=== PATIENT | male | born 1970 | race Caucasian/White ===

== ENCOUNTER → 2017-02-02 | Outpatient (CLI) | payer BC ==
[~2017-02-02] MED LIST: ASPI81TA28 PO; ATOR-26 PO; CLOP1TAB15 PO; GLIM1TAB2 PO; LEVO75TA PO; LISI-526 PO; METF1000 PO; METO-217 PO
[2017-02-02 17:55] LABS: HEMATOCRIT 43.1 % (42-52); MEAN CELL VOLUME 86.4 fL (80-100); MEAN CORPUSCULAR HEMOGLOBIN 29.3 pg (25-34); MEAN CORPUSCULAR HGB CONC 33.9 g/dl (32-36); MEAN PLATELET VOLUME 10.7 fL (7.4-10.4); PLATELET COUNT 227 K/uL (130-400); RED BLOOD COUNT 4.99 M/uL (4.7-6.1); WHITE BLOOD COUNT 7.17 K/uL (4.8-10.8)
[2017-02-02 18:21] LABS: ALB/GLOB RATIO 1.1 (0.9-2); ALT/SGPT 48 U/L (12-78); BLOOD UREA NITROGEN 31 mg/dl (7-18); BUN/CREATININE RATIO 17.9 (10-20); CALCIUM 9.7 mg/dl (8.5-10.1); CARBON DIOXIDE 28 mmol/L (21-32); CHLORIDE 108 mmol/L (98-107); CHOLESTEROL 185 mg/dl (0-200); GLUCOSE 98 mg/dl (70-99); POTASSIUM 5.1 mmol/L (3.5-5.1); SODIUM 141 mmol/L (136-145); TRIGLYCERIDES 173 mg/dl (0-150); VERY LOW DENSITY LIPOPROT CALC 35 mg/dl
[2017-02-02 18:27] LABS: RATIO 33.3 mcg/mg (0-30.0)
[2017-02-02 18:31] LABS: ALKALINE PHOSPHATASE 86 U/L (45-117); AST/SGOT 30 U/L (15-37); CHOLESTEROL/HDL RATIO 4.3; HDL CHOLESTEROL 43 mg/dl; LDL CHOLESTEROL CALCULATED 107 mg/dl
[2017-02-03 06:33] LABS: ESTIMATED AVERAGE GLUCOSE 151 mg/dl; HA1C FLAG Normal (Normal)
== END | disposition home or self-care (01) ==
LOC: C.LABBFT 09:18
PROVIDERS: ATTEND Internal Medicine
DX: I10 Essential (primary) hypertension (principal); E11.29 Type 2 diabetes mellitus with other diabetic kidney complication; E03.9 Hypothyroidism, unspecified

== ENCOUNTER → 2017-02-05 | Outpatient (CLI) | payer BC ==
--- NOTE | 2017-02-05 08:51 | DIAGNOSTIC IMAGING REPORT ---
DUPLEX RENAL ARTERY CLINICAL HISTORY: 46 years-old Male presenting with hypertension, concern for renal artery stenosis. TECHNIQUE: Real-time grayscale and color and spectral Doppler ultrasound imaging of the kidneys was performed. COMPARISON: None. FINDINGS: Right kidney: Intrarenal resistive indices range from 0.66 to 0.66. Normal intrarenal arterial waveforms. Renal artery patent with peak systolic velocity 108 cm/s. Renal vein patent. Normal echogenicity. Kidney measures 11 cm. No hydronephrosis. No convincing evidence of calculus or mass. Left kidney: Intrarenal resistive indices range from 0.65 to 0.69. Normal intrarenal arterial waveforms. Renal artery patent with peak systolic velocity 95 cm/s. Renal vein patent. Normal echogenicity. Kidney measures 11.2 cm. No hydronephrosis. No convincing evidence of calculus or mass. Abdominal aorta: Patent. Peak systolic velocity 81 cm/s. Other: None. Reference ranges: Main renal artery peak systolic velocity less than 180 cm/s and ratio of renal artery PSV to aortic PSV less than 2.5 equates to less than 60% stenosis. IMPRESSION: No evidence of renal artery stenosis. Electronically signed by: Yordy Ambriz M.D. 02/05/2017 8:50 AM Dictated Date/Time: 02/05/2017 8:47 AM
== END | disposition home or self-care (01) ==
LOC: C.ULTR 07:57
PROVIDERS: ATTEND Internal Medicine
DX: I10 Essential (primary) hypertension (principal)

== ENCOUNTER → 2017-03-27 | Outpatient (CLI) | payer BC ==
[2017-03-27 16:36] LABS: BLOOD UREA NITROGEN 19 mg/dl (7-18); BUN/CREATININE RATIO 14.3 (10-20); CALCIUM 8.6 mg/dl (8.5-10.1); CARBON DIOXIDE 26 mmol/L (21-32); CHLORIDE 106 mmol/L (98-107); GLUCOSE 193 mg/dl (70-99); POTASSIUM 4.2 mmol/L (3.5-5.1); SODIUM 138 mmol/L (136-145)
== END | disposition home or self-care (01) ==
LOC: C.LABBFT 13:46
PROVIDERS: ATTEND Internal Medicine
DX: I10 Essential (primary) hypertension (principal); E03.9 Hypothyroidism, unspecified

== ENCOUNTER → 2017-06-11 | Outpatient (CLI) | payer BC ==
[2017-06-11 17:35] LABS: ALT/SGPT 39 U/L (12-78); AST/SGOT 28 U/L (15-37); BLOOD UREA NITROGEN 26 mg/dl (7-18); BUN/CREATININE RATIO 18.2 (10-20); CALCIUM 8.9 mg/dl (8.5-10.1); CARBON DIOXIDE 27 mmol/L (21-32); CHLORIDE 108 mmol/L (98-107); CHOLESTEROL 150 mg/dl (0-200); CREATININE 1.42 mg/dl (0.60-1.40); GLUCOSE 137 mg/dl (70-99); POTASSIUM 4.8 mmol/L (3.5-5.1); SODIUM 140 mmol/L (136-145); TRIGLYCERIDES 114 mg/dl (0-150); VERY LOW DENSITY LIPOPROT CALC 23 mg/dl
[2017-06-11 17:45] LABS: ALB/GLOB RATIO 0.9 (0.9-2); ALKALINE PHOSPHATASE 95 U/L (45-117); CHOLESTEROL/HDL RATIO 3.7; HDL CHOLESTEROL 41 mg/dl; LDL CHOLESTEROL CALCULATED 86 mg/dl
[2017-06-12 06:37] LABS: ESTIMATED AVERAGE GLUCOSE 171 mg/dl; HA1C FLAG Normal (Normal)
== END | disposition home or self-care (01) ==
LOC: C.LABBFT 13:52
PROVIDERS: ATTEND Internal Medicine
DX: E11.29 Type 2 diabetes mellitus with other diabetic kidney complication (principal)

== ENCOUNTER → 2017-07-31 | Outpatient (CLI) | payer BC ==
[2017-07-31 12:56] LABS: BLOOD UREA NITROGEN 45 mg/dl (7-18); CALCIUM 8.9 mg/dl (8.5-10.1); CARBON DIOXIDE 24 mmol/L (21-32); CREATININE 1.86 mg/dl (0.60-1.40); GLUCOSE 141 mg/dl (70-99); POTASSIUM 5.1 mmol/L (3.5-5.1); SODIUM 135 mmol/L (136-145)
== END | disposition home or self-care (01) ==
LOC: C.LABBFT 08:35
PROVIDERS: ATTEND Physician Assistant Medical
DX: I10 Essential (primary) hypertension (principal)

== ENCOUNTER → 2017-10-28 | Outpatient (CLI) | payer BC ==
[2017-10-28 18:10] LABS: BLOOD UREA NITROGEN 28 mg/dl (7-18); CREATININE 1.68 mg/dl (0.60-1.40); GLUCOSE 251 mg/dl (70-99)
[2017-10-28 18:11] LABS: ALBUMIN 3.9 gm/dl (3.4-5.0); ALT/SGPT 43 U/L (12-78); CALCIUM 9.1 mg/dl (8.5-10.1); CARBON DIOXIDE 25 mmol/L (21-32); POTASSIUM 5.7 mmol/L (3.5-5.1); SODIUM 138 mmol/L (136-145)
[2017-10-28 18:13] LABS: ALKALINE PHOSPHATASE 101 U/L (45-117); AST/SGOT 34 U/L (15-37)
[2017-10-29 06:38] LABS: HEMOGLOBIN A1C 8.2 % (4.5-5.6)
== END | disposition home or self-care (01) ==
LOC: C.LABBFT 12:29
PROVIDERS: ATTEND Physician Assistant Medical
DX: E11.65 Type 2 diabetes mellitus with hyperglycemia (principal)

== ENCOUNTER → 2017-10-30 | Outpatient (CLI) | payer BC ==
[2017-10-30 16:52] LABS: BLOOD UREA NITROGEN 24 mg/dl (7-18); CALCIUM 8.6 mg/dl (8.5-10.1); CARBON DIOXIDE 26 mmol/L (21-32); CREATININE 1.51 mg/dl (0.60-1.40); GLUCOSE 196 mg/dl (70-99); POTASSIUM 4.9 mmol/L (3.5-5.1); SODIUM 137 mmol/L (136-145)
== END | disposition home or self-care (01) ==
LOC: C.LABBFT 12:59
PROVIDERS: ATTEND Internal Medicine
DX: E87.5 Hyperkalemia (principal)

== ENCOUNTER 2022-07-11 16:29 | Inpatient (IN) ==
--- NOTE | 2022-07-11 17:58 | CT Scan Report ---
CT SCAN OF THE ABDOMEN AND PELVIS WITHOUT IV CONTRAST CLINICAL HISTORY: Acute renal insufficiency COMPARISON STUDY: Renal ultrasound dated 07/11/2022. TECHNIQUE: CT scan of the abdomen and pelvis is performed from the lung bases to the proximal femora. Images are reviewed in the axial, sagittal, and coronal planes. IV contrast was not administered for this examination. A dose lowering technique was utilized adhering to the principles of ALARA. CT DOSE: 752.90 mGycm FINDINGS: Lung bases: The heart is normal in size and without pericardial effusion. The coronary arteries are c alcified. There are at least 3 additional nonobstructing left renal calculi which measure up to 4 mm. There are least 2 punctate nonobstructing right renal calculi. There is no right ureteral stone or r ight-sided hydronephrosis. The lung bases are clear noting bibasilar scarring/atelectasis. Liver: The unenhanced liver is normal in size, contour, and attenuation. There is no intrahepatic maty iary ductal dilatation. Gallbladder: Unremarkable. Spleen: Normal in size and attenuation. Pancreas: Unremarkable. Adrenal glands: Unremarkable. Kidneys: The unenhanced kidneys are normal in size. There is a 2.0 cm obstructing calculus in the mid left ureter at the level of L4. This is best seen on axial image #230. This causes moderate left hyd roureteronephrosis. There are no renal calculi identified. There is no evidence of contour deforming renal mass lesion. Abdominal vasculature: The abdominal aorta is normal in course and caliber noting moderate atheroscle rotic calcification. Bowel: There is no bowel obstruction. The appendix is well-visualized and normal. Peritoneum: There is no intraperitoneal free air or abdominal ascites. Lymphadenopathy: None. Pelvic viscera: The prostate gland is diminutive and heterogeneous. The bladder wall appears mildly t hickened and trabeculated suggesting chronic outlet obstruction. There are small bilateral fat-contai bret inguinal hernias. Skeletal structures: No lytic or blastic lesions are seen. There is chronic fracture deformity noted in both pubic rings and the left proximal femur. Postoperative changes noted in the left proximal fem ur. Bolts transfix both sacroiliac joints. IMPRESSION: 1. There is a 2 cm obstructing calculus in mid left ureter. This causes moderate left hydroureteronep hrosis. 2. Additional bilateral nonobstructing renal calculi as above. 3. Coronary artery calcifications. 4. Additional findings as above. ACT 112: Negative or not required by law. Electronically signed by: Brad Peguero M.D. 07/11/2022 5:56 PM
[2022-07-11] MEDS ORDERED: SODIUM CHLORIDE 0.9% 1000ML 1,000 ML IV ONE (18:07)
--- NOTE | 2022-07-11 18:08 | Emergency Department Note ---
Impression & Plan Acute kidney injury superimposed on CKD, Hydronephrosis due to obstruction of ureter, Calculus of proximal left ureter ED Provider Note Name: MANOHAR LAMB Age: 52 Sex: M Arrives Via: Walk-In Informant: Patient, ED Provider: Wilman Khalil MD Chief Complaint: Flank pain Impression: As per impressions above Medical Decision Makin-year-old male with a known history of CAD, CKD, diabetes amongst others arrives for evaluation of 2 months of vaguely worsening left flank pain and several days of rapidly worsening fatigue exhaustion and generalized illness. He had already been seen in the outpatient setting where labs revealed acute worsening of his chronic renal disease as well as hydronephrosis of the left kidney secondary to an obstructing proximal ureteral stone. A CT was obtained without contrast here which confirms a almost 2 cm proximal left ureteral stone causing left hydronephrosis. His renal function has bumped significantly though at this point he is not requiring dialysis. Electrolytes are stable. He was given 1 L normal saline while evaluated in the ER. When reviewing the chart I would suspect that the acute renal injury secondary to this obstructing stone which is probably been ongoing for some time now possibly worsened by recent medication changes. Case was discussed with on-call urology who agrees with plan for hospitalization fluid hydration and likely OR in the morning for stenting. I discussed this with the patient and his they are on board with this. I will note the patient is soft nontender abdomen he is not septic appearing he is awake alert oriented. There is no evidence of infection at this time and urinalysis is consistent with stone but not infection. Prior Medical Record and Triage/Nursing Notes reviewed by Me Additional history obtained from outpatient PCP records revealing patient's recent history and work-up. Differentials:Acute renal failure, renal colic, medication induced, stone induced, pyelonephritis, UTI, diverticulitis, ischemia amongst multiple other pathologies considered. Vital Signs: reviewed and remarkable for no significant abnormalities Interventions: 1 L normal saline IV bolus Labs:Reviewed and remarkable for acute worsening of creatinine consistent with acute on chronic renal failure. Unremarkable WBC. Imaging:CT of the abdomen pelvis without contrast as per radiology proximal 2 cm left ureteral stone causing moderate hydro Consults:Dr. Nelson of [facility] urology agrees with IV hydration, hospitalization likely OR in the morning. I discussed case with Dr. Dyer [facility] Hospitalist who will admit the patient. Plan: Disposition:Hospitalization. Condition: Good History of Present Illness:52-year-old gentleman arrives for evaluation of worsening kidney function. Patient notes 2 months of some vaguely not feeling well with left flank pain. He had an ultrasound a few months ago which showed a large somewhat obstructing proximal ureteral stone. Notes some periodic discomfort but no significant pain. Notes he gets nauseous anytime he eats. The last few weeks worsening symptoms. He had kidney function testing done the last few days noted worsening renal function along with an ultrasound which showed a 1 and half centimeter proximal left ureteral stone and moderate hydro-. He was sent to the hospital for admission and management. Patient had no medications prior to arrival. Notes he feels worse when he eats. States has been more tired recently. The last few weeks he did have increase in both of his blood pressure medications. States he has not had as much appetite or thirst recently. He is still urinating. No urinary burning, frequency, fevers, chills, chest pain, shortness of breath, abdominal pain, leg swelling, rashes or other concerning signs or symptoms. No history of renal failure. He does have a history of diabetes and watches his blood sugars closely. Usually they are in the low 100s but did go up into the 200s the last few days. Allergies:No known drug allergies Vitals:Blood Pressure: 128/81, Pulse 95, RR 18, T 36.2C, O2 99% on RA Physical Exam: GENERAL: Patient is tired appearing and in minimal distress. EYES: No scleral icterus, unremarkable pupils. RESPIRATORY: No dyspnea. Clear to auscultation and equal bilaterally. No wheeze, no rhonchi. CARDIOVASCULAR: Regular rate and rhythm.No murmurs, rubs, gallops appreciated. GASTROINTESTINAL: Abdomen soft, non-tender, no peritonitis.Bowel sounds positive.No masses appreciated. BACK: No midline tenderness, no CVA tenderness EXTREMITIES: Normal motion all extremities, no cyanosis, no edema. NEUROLOGIC: Alert and oriented, no focal weakness SKIN: No rash, no jaundice, no diaphoresis. PSYCH: Appropriate GCS: 15 ED Course: Times/Reassessments: Patient stable he feels well with IV hydration and is agreeable to hospitalization would likely OR in the morning aware n.p.o. after midnight. Wilman Khalil MD Past Med/Surg History Medical History CAD (coronary artery disease) Chronic kidney disease, stage III (moderate) DM retinopathy Hyperlipidemia Hypertension Hypothyroidism Proteinuria Stage 3b chronic kidney disease Type 2 diabetes mellitus Vitamin D deficiency Surgical History History of cardiac catheterization S/P coronary artery stent placement Family History Father Myocardial infarction Heart disease Hypertension Family/Other Diabetes Mother Hypertension Other Breast cancer Prostate cancer Denies family history of Colorectal cancer Social History Smoking Status: Never smoker Second Hand Exposure: No; Hx Alcohol Use: No Hx Substance Use: No Preferred Language: Panamanian Communication Ability: Effective Hearing Ability: Normal 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 Beliefs That Will Affect Care: None marital status: Current Living Situation: Spouse current occupational status: employed Other Information That Helps Us Care for You: No Feels Safe at Home: Yes Safety Concerns: Feels Safe At This Time caffeine: No Dental Care, Regularly: No Seatbelt Use: always Sunscreen Use: Yes Assistive Devices: Glasses Allergies Allergies Allergy/AdvReac Type Severity Reaction Status Date / Time No Known Allergies Allergy Verified 07/11/22 19:11 Home Meds Home Medications Medication Instructions Recorded Confirmed aspirin 81 mg tablet,delayed 81 mg PO DAILY 10/10/18 07/11/22 release amlodipine 10 mg tablet 10 mg PO QAM 07/11/22 07/11/22 dulaglutide 3 mg/0.5 mL 3 mg subcut WK 07/11/22 07/11/22 subcutaneous pen injector Previous Rx's Medication Instructions Recorded levothyroxine 75 mcg tablet 75 mcg PO DAILY #90 tabs 08/06/21 metoprolol succinate 100 mg 100 mg PO DAILY #90 tabs 08/06/21 tablet,extended release 24 hr clopidogrel 75 mg tablet 75 mg PO DAILY #90 tabs 08/20/21 rosuvastatin 40 mg tablet 40 mg PO DAILY #90 tabs 09/19/21 glimepiride 2 mg tablet 2 mg PO .COMPLEX #270 tabs 02/07/22 dapagliflozin 10 mg tablet 10 mg PO QAM #90 tabs 07/03/22 (Merged With [facility]) flash glucose scanning reader #1 ea 07/03/22 (FreeStyle Jamil 14 Day [place]) flash glucose sensor (FreeStyle #1 ea 07/03/22 Jamil 14 Day Sensor kit) lisinopril 20 mg tablet 20 mg PO DAILY #90 tabs 07/03/22 metformin 1,000 mg tablet 1,000 mg PO BID 90 days #180 tabs 07/03/22 Results & Data (ED) Vital Signs Vital Signs - 24 hr 07/11/22 16:30 Temperature 36.2 C L Temperature Source Temporal Artery Scan Pulse Rate 95 H Respiratory Rate 18 Blood Pressure 128/81 Blood Pressure Mean 96 Blood Pressure Position Lying Pulse Oximetry 99 Oxygen Delivery Method Room Air Sepsis Recent Fever Within 48 Hours No Sepsis New/Unexplained Change in Mental Status No Sepsis Action Taken by Nursing No Action Required Laboratory Data 07/11/22 17:38 07/11/22 17:38 Lab Results 07/11/22 07/11/22 07/11/22 Range/Units 17:38 17:38 18:31 WBC 7.00 (4.8-10.8) K/ul RBC 5.03 (4.63-6.08) M/uL Hgb 13.6 L (14.0-18.0) g/dl Hct 41.1 (40.1-51.0) % MCV 81.7 (80.0-100.0) fL MCH 27.0 (25.0-34.0) pg MCHC 33.1 (32.0-36.0) g/dL RDW Std Deviation 39.2 (36.4-46.3) fL RDW Coeff of Ross 13.2 (11.5-14.5) % Plt Count 274 (130-400) K/uL MPV 10.5 (9.4-12.4) fL Immature Gran % (Auto) 0.4 % Neut % (Auto) 56.7 % Lymph % (Auto) 32.4 % Hutchinson % (Auto) 9.0 % Eos % (Auto) 0.9 % Baso % (Auto) 0.6 % Neut # (Auto) 3.97 (1.4-6.5) K/uL Lymph # (Auto) 2.27 (1.2-3.4) K/uL Hutchinson # (Auto) 0.63 (0.24-0.82) K/uL Eos # (Auto) 0.06 (0-0.50) K/uL Baso # (Auto) 0.04 (0-0.2) K/uL Immature Gran # (Auto) 0.03 H (0.00-0.02) K/uL Sodium 136 (136-145) mmol/L Potassium 4.5 (3.5-5.1) mmol/L Chloride 106 (98-107) mmol/L Carbon Dioxide 21 (21-32) mmol/L Anion Gap 9 (3-11) BUN 45 H (6-23) mg/dl Creatinine 3.49 H (0.6-1.4) mg/dl Est Cr Clr Drug Dosing 26.2 ml/min Est GFR ( Amer) 22.2 ml/min Est GFR (Non-Af Amer) 19.1 ml/min BUN/Creatinine Ratio 12.9 (10-20) Glucose 103 H (70-99(Fasting)) mg/dl Calcium 9.6 (8.5-10.1) mg/dl Total Bilirubin 0.4 (0.2-1.0) mg/dl AST 21 (13-39) U/L ALT 27 (7-52) U/L Alkaline Phosphatase 78 (34-104) U/L Total Protein 9.0 H (6.0-8.3) gm/dl Albumin 4.8 (3.4-5.0) gm/dl Globulin 4.2 H (2.5-4.0) gm/dl Albumin/Globulin Ratio 1.1 (0.9-2) SARS-CoV-2, RNA, NAAT NEGATIVE (NEGATIVE) Administered Medications Acetaminophen (Acetaminophen 325 Mg Tab) 650 mg PO Q4H PRN PRN Reason: Pain or Fever Stop: 08/10/22 22:08 Last Admin: 07/12/22 11:59 Dose: 650 mg Documented By: LENORA Amlodipine Besylate (Amlodipine Besylate 5 Mg Tab) 5 mg PO DAILY [facility] Stop: 08/11/22 08:59 Last Admin: 07/12/22 11:01 Dose: 5 mg Documented By: LENORA Lactated Ringer's (Lr) 1,000 mls @ 150 mls/hr IV .Q6H40M RACHELLE Stop: 08/10/22 22:08 Last Infusion: 07/12/22 10:57 Dose: 150 mls/hr Documented By: Infusion: 07/12/22 08:45 Dose: 0 mls/hr Documented By: Admin: 07/12/22 07:22 Dose: 150 mls/hr Documented By: Infusion: 07/12/22 07:22 Dose: 150 mls/hr Documented By: Admin: 07/12/22 00:46 Dose: 150 mls/hr Documented By: Infusion: 07/12/22 00:46 Dose: 150 mls/hr Documented By: Admin: 07/11/22 23:10 Dose: 150 mls/hr Documented By: CLAUDIO Insulin Aspart (Insulin Aspart Per Unit) 0 units SC ACHS RACHELLE Stop: 08/10/22 22:08 Last Admin: 07/12/22 12:47 Dose: Not Given Documented By: Admin: 07/12/22 08:19 Dose: Not Given Documented By: Admin: 07/12/22 01:10 Dose: 3 units Documented By: RONALD Co-signed By: EDUARDA Insulin Glargine (Lantus Per Unit Charge) 14 units SQ BID RACHELLE Stop: 08/10/22 22:08 Last Admin: 07/12/22 11:03 Dose: 14 units Documented By: LENORA Co-signed By: JOSEY Admin: 07/12/22 00:47 Dose: 14 units Documented By: RONALD Co-signed By: EDUARDA Levothyroxine Sodium (Levothyroxine Sodium 75 Mcg Tablet) 75 mcg PO DAILYBB RACHELLE Stop: 08/11/22 06:29 Last Admin: 07/12/22 05:35 Dose: 75 mcg Documented By: RONALD Metoprolol Succinate (Metoprolol Succ 50mg Ext Rel Tab) 100 mg PO DAILY RACHELLE Stop: 08/11/22 08:59 Last Admin: 07/12/22 11:01 Dose: 100 mg Documented By: LENORA Rosuvastatin Calcium (Rosuvastatin Calcium 20 Mg Tab) 40 mg PO DAILY RACHELLE Stop: 08/11/22 08:59 Last Admin: 07/12/22 11:01 Dose: 40 mg Documented By: LENORA Discontinued Medications Sodium Chloride (Nss 1000ml) 1,000 mls @ 999 mls/hr IV .Q1H1M ONE Stop: 07/11/22 19:07 Last Infusion: 07/11/22 21:11 Dose: 0 mls/hr Documented By: psychological aide: 07/11/22 18:25 Dose: 999 mls/hr Documented By: MARCIA Cefazolin Sodium (Ancef 2000mg) 2,000 mg in 15 mls @ 3.75 mls/min IV ONCE ONE; Protocol Stop: 07/12/22 10:05 Last Admin: 07/12/22 09:40 Dose: 3.75 mls/min Documented By: MAUREEN Imaging Data Radiologist's Impression: Abdomen/Pelvis CT 07/11/22 16:32 CT SCAN OF THE ABDOMEN AND PELVIS WITHOUT IV CONTRAST CLINICAL HISTORY: Acute renal insufficiency COMPARISON STUDY: Renal ultrasound dated 07/11/2022. TECHNIQUE: CT scan of the abdomen and pelvis is performed from the lung bases to the proximal femora. Images are reviewed in the axial, sagittal, and coronal planes. IV contrast was not administered for this examination. A dose lowering technique was utilized adhering to the principles of ALARA. CT DOSE: 752.90 mGycm FINDINGS: Lung bases: The heart is normal in size and without pericardial effusion. The coronary arteries are calcified. There are at least 3 additional nonobstructing left renal calculi which measure up to 4 mm. There are least 2 punctate nonobstructing right renal calculi. There is no right ureteral stone or right- sided hydronephrosis. The lung bases are clear noting bibasilar scarring/atelectasis. Liver: The unenhanced liver is normal in size, contour, and attenuation. There is no intrahepatic biliary ductal dilatation. Gallbladder: Unremarkable. Spleen: Normal in size and attenuation. Pancreas: Unremarkable. Adrenal glands: Unremarkable. Kidneys: The unenhanced kidneys are normal in size. There is a 2.0 cm obstructing calculus in the mid left ureter at the level of L4. This is best seen on axial image #230. This causes moderate left hydroureteronephrosis. There are no renal calculi identified. There is no evidence of contour deforming renal mass lesion. Abdominal vasculature: The abdominal aorta is normal in course and caliber noting moderate atherosclerotic calcification. Bowel: There is no bowel obstruction. The appendix is well-visualized and normal. Peritoneum: There is no intraperitoneal free air or abdominal ascites. Lymphadenopathy: None. Pelvic viscera: The prostate gland is diminutive and heterogeneous. The bladder wall appears mildly thickened and trabeculated suggesting chronic outlet obstruction. There are small bilateral fat-containing inguinal hernias. Skeletal structures: No lytic or blastic lesions are seen. There is chronic fracture deformity noted in both pubic rings and the left proximal femur. Postoperative changes noted in the left proximal femur. Bolts transfix both sacroiliac joints. IMPRESSION: 1. There is a 2 cm obstructing calculus in mid left ureter. This causes moderate left hydroureteronephrosis. 2. Additional bilateral nonobstructing renal calculi as above. 3. Coronary artery calcifications. 4. Additional findings as above. ACT 112: Negative or not required by law. Electronically signed by: Brad Peguero M.D. 07/11/2022 5:56 PM Discharge Plan Visit Data Chief Complaint: Referred by Doctor Stated Complaint: REF BY DOC, ULTRASOUND TESTING ON KIDNEY ED Provider: Wilman Khalil Discharge Problem: Acute kidney injury superimposed on CKD, Hydronephrosis due to obstruction of ureter, Calculus of proximal left ureter Patient Disposition: Admitted As Inpatient Discharge Instructions Interventions: ED Discharge Assessment Last Done: 07/11/22 23:07
[2022-07-11 18:11] LABS: Basophils # (auto) 0.04 K/uL (0-0.2); Basophils % (auto) 0.6 %; Eosinophils # (auto) 0.06 K/uL (0-0.50); Eosinophils % (auto) 0.9 %; Hematocrit (blood only) 41.1 % (40.1-51.0); Hemoglobin 13.6 g/dl (14.0-18.0); Immature Granulocytes # (auto) 0.03 K/uL (0.00-0.02); Immature Granulocytes % (auto) 0.4 %; Lymphocytes # (auto) 2.27 K/uL (1.2-3.4); Lymphocytes % (auto) 32.4 %; Mean Corpuscular Hgb Conc 33.1 g/dL (32.0-36.0); Mean Corpuscular Volume 81.7 fL (80.0-100.0); Mean Platelet Volume 10.5 fL (9.4-12.4); Monocytes # (auto) 0.63 K/uL (0.24-0.82); Neutrophils # (auto) 3.97 K/uL (1.4-6.5); Neutrophils % (auto) 56.7 %; Platelet Count 274 K/uL (130-400); RDW Coefficient of Variation 13.2 % (11.5-14.5); RDW Standard Deviation 39.2 fL (36.4-46.3); Red Blood Count 5.03 M/uL (4.63-6.08)
[2022-07-11 18:15] LABS: Albumin Globulin Ratio 1.1 (0.9-2); Albumin Level 4.8 gm/dl (3.4-5.0); BUN Creatinine Ratio 12.9 (10-20); Bilirubin,Total 0.4 mg/dl (0.2-1.0); Calcium 9.6 mg/dl (8.5-10.1); Creatinine Clr Calc Pharmacy 26.2 ml/min; Est GFR (African American) 22.2 ml/min; Est GFR (Non-African American) 19.1 ml/min; Globulin 4.2 gm/dl (2.5-4.0); Potassium 4.5 mmol/L (3.5-5.1)
--- NOTE | 2022-07-11 18:52 | History & Physical Report ---
Date of Service July 11, 2022 Assessment & Plan (1) Acute kidney injury superimposed on CKD: Plan: - 2/2 left obstructing stones/hydro - Urology consulted, appreciate their recommendations. - LR 125 cc/hr. - Hold Lisinopril, Farxiga. - Repeat BMP in AM. (2) Hydronephrosis due to obstruction of ureter: Plan: - Urology consulted, management of VERONICA as above. (3) Diabetes mellitus type 2, uncontrolled, with complications: Plan: - Hold oral agents (glimepiride, Trulicity metformin) - Weight based basal/bolus whit admitted - A1c 9.8% 07/03 - DM diet (4) Stage 3b chronic kidney disease: Plan: - Baseline 1.8 to 2.1, management of VERONICA as above. (5) Anemia: Plan: - Likey secondary to CKD. (6) CAD (coronary artery disease): Plan: - s/p PCI with LINDA 09/17 and 10/18 to LAD and LCx/OM, carotid artery stenosis - Continue aspirin and Plavix daily - Continue diabetes, cholesterol, blood pressure management. (7) Hypertension: Plan: - Lisinopril on hold for VERONICA. - Continue metoprolol. (8) Hyperlipidemia: Plan: - Continue rosuvastatin. (9) Hypothyroidism: Plan: - Continue levothyroxine. Plan - Admit to medicine with telemetry. - SCDs, Lovenox for VTE ppx. - Full Code. History of Present Illness Chief Complaint: worsening renal function Primary Care Provider: Dagoberto Bazan DO Efren Mello is a 52-year-old male with past medical history significant for uncontrolled diabetes, hypertension, hyperlipidemia, hypothyroidism, CKD 3, CAD who is presenting today with worsening renal function. Follows with nephrology and his PCP closely as an outpatient, and recently had his lisinopril increased from 10 mg to 20 mg and Farxiga increased from 5 mg to 10 mg. His metformin was also increased to the maximum daily dose. His baseline creatinine is 1.8, however after the medication changes he got up to 2.4, now 3.2 Baseline GFR of around 40, now 20. He has a history of nonobstructing renal follow-ups, therefore a renal U/S was ordered which shows moderate left hydronephrosis due to several proximal mid left ureteral calculi that measure up to 1.6 cm, bilateral nephrolithiasis. On presentation, patients VS are within normal limits, he is hemodynamically stable. Labs significant for creatinine 3.49, GFR 19.1. He is without any electrolyte abnormalities, has a chronic anemia which is at baseline. Renal ultrasound obtained today, as above. We will consult for obstructing renal stones. Allergies Allergy/AdvReac Type Severity Reaction Status Date / Time No Known Allergies Allergy Verified 07/11/22 19:11 Home Medications Medication Instructions Recorded Confirmed Type aspirin 81 mg tablet,delayed 81 mg PO DAILY 10/10/18 07/11/22 History release levothyroxine 75 mcg tablet 75 mcg PO DAILY #90 tabs 08/06/21 07/11/22 Rx metoprolol succinate 100 mg 100 mg PO DAILY #90 tabs 08/06/21 07/11/22 Rx tablet,extended release 24 hr clopidogrel 75 mg tablet 75 mg PO DAILY #90 tabs 08/20/21 07/11/22 Rx rosuvastatin 40 mg tablet 40 mg PO DAILY #90 tabs 09/19/21 07/11/22 Rx glimepiride 2 mg tablet 2 mg PO .COMPLEX #270 tabs 02/07/22 07/11/22 Rx dapagliflozin 10 mg tablet 10 mg PO QAM #90 tabs 07/03/22 07/11/22 Rx (Farxiga) flash glucose scanning reader #1 ea 07/03/22 07/03/22 Rx (FreeStyle Jamil 14 Day [place]) flash glucose sensor (FreeStyle #1 ea 07/03/22 07/03/22 Rx Jamil 14 Day Sensor kit) lisinopril 20 mg tablet 20 mg PO DAILY #90 tabs 07/03/22 07/11/22 Rx metformin 1,000 mg tablet 1,000 mg PO BID 90 days #180 tabs 07/03/22 07/11/22 Rx amlodipine 10 mg tablet 10 mg PO QAM 07/11/22 07/11/22 History dulaglutide 3 mg/0.5 mL 3 mg subcut WK 07/11/22 07/11/22 History subcutaneous pen injector Past Med/Surg History Medical History CAD (coronary artery disease) Chronic kidney disease, stage III (moderate) DM retinopathy Hyperlipidemia Hypertension Hypothyroidism Proteinuria Stage 3b chronic kidney disease Type 2 diabetes mellitus Vitamin D deficiency Surgical History History of cardiac catheterization S/P coronary artery stent placement Family History Father Myocardial infarction Heart disease Hypertension Family/Other Diabetes Mother Hypertension Other Breast cancer Prostate cancer Denies family history of Colorectal cancer Social History Smoking Status: Never smoker Second Hand Exposure: No; Hx Alcohol Use: Yes Hx Substance Use: No Preferred Language: Mexican Hearing Ability: Normal marital status: Current Living Situation: Spouse current occupational status: employed Feels Safe at Home: Yes caffeine: No Dental Care, Regularly: No Seatbelt Use: always Sunscreen Use: Yes Review of Systems Review of Systems: General: awake, alert, no apparent distress Head: Normocephalic, atraumatic ENT: PERRL, EOMI, no pharyngeal exudate, mucous membranes moist Chest: Clear to auscultation, on room air, no adventitious breath sounds Cardiac: Regular rate and rhythm, no murmur, no JVD, normal peripheral pulses, good capillary refill Abdominal: intermittent left flank pain, none at present; NABS x 4 quadrants, soft, nontender to palpation, no rebound, guarding or tenderness Extremities: Normal inspection, no peripheral edema or erythema, calfs nontender to palpation Psych: Normal mood and affect Neuro: AAO x 3, strength intact bilaterally and rated 5/5, no motor deficits, speech is clear, no peripheral sensory deficits Skin: no rash or erythema Physical Exam Physical Exam: General: awake, alert, no apparent distress Head: Normocephalic, atraumatic ENT: PERRL, EOMI, no pharyngeal exudate, mucous membranes moist Chest: Clear to auscultation, on room air, no adventitious breath sounds Cardiac: Regular rate and rhythm, no murmur, no JVD, normal peripheral pulses, good capillary refill Abdominal: NABS x 4 quadrants, soft, nontender to palpation, no rebound, guarding or tenderness Extremities: Normal inspection, no peripheral edema or erythema, calfs nontender to palpation Psych: Normal mood and affect Neuro: AAO x 3, strength intact bilaterally and rated 5/5, no motor deficits, speech is clear, no peripheral sensory deficits Skin: no rash or erythema Results & Data Results & Data ([facility]) Vital Signs (Past 12 Hours) Vital Signs Temp Pulse Resp BP Pulse Ox O2 Del Method 07/11/22 16:30 36.2 C L 95 H 18 128/81 99 Room Air Laboratory Results Abnormal lab results 07/11/22 07/11/22 Range/Units 17:38 17:38 Hgb 13.6 L (14.0-18.0) g/dl Immature Gran # (Auto) 0.03 H (0.00-0.02) K/uL BUN 45 H (6-23) mg/dl Creatinine 3.49 H (0.6-1.4) mg/dl Glucose 103 H (70-99(Fasting)) mg/dl Total Protein 9.0 H (6.0-8.3) gm/dl Globulin 4.2 H (2.5-4.0) gm/dl Diagnostic Findings Abdomen/Pelvis CT 07/11/22 16:32 CT SCAN OF THE ABDOMEN AND PELVIS WITHOUT IV CONTRAST CLINICAL HISTORY: Acute renal insufficiency COMPARISON STUDY: Renal ultrasound dated 07/11/2022. TECHNIQUE: CT scan of the abdomen and pelvis is performed from the lung bases to the proximal femora. Images are reviewed in the axial, sagittal, and coronal planes. IV contrast was not administered for this examination. A dose lowering technique was utilized adhering to the principles of ALARA. CT DOSE: 752.90 mGycm FINDINGS: Lung bases: The heart is normal in size and without pericardial effusion. The coronary arteries are calcified. There are at least 3 additional nonobstructing left renal calculi which measure up to 4 mm. There are least 2 punctate nonobstructing right renal calculi. There is no right ureteral stone or right- sided hydronephrosis. The lung bases are clear noting bibasilar scarring/atelectasis. Liver: The unenhanced liver is normal in size, contour, and attenuation. There is no intrahepatic biliary ductal dilatation. Gallbladder: Unremarkable. Spleen: Normal in size and attenuation. Pancreas: Unremarkable. Adrenal glands: Unremarkable. Kidneys: The unenhanced kidneys are normal in size. There is a 2.0 cm obstructing calculus in the mid left ureter at the level of L4. This is best seen on axial image #230. This causes moderate left hydroureteronephrosis. There are no renal calculi identified. There is no evidence of contour deforming renal mass lesion. Abdominal vasculature: The abdominal aorta is normal in course and caliber noting moderate atherosclerotic calcification. Bowel: There is no bowel obstruction. The appendix is well-visualized and normal. Peritoneum: There is no intraperitoneal free air or abdominal ascites. Lymphadenopathy: None. Pelvic viscera: The prostate gland is diminutive and heterogeneous. The bladder wall appears mildly thickened and trabeculated suggesting chronic outlet obstruction. There are small bilateral fat-containing inguinal hernias. Skeletal structures: No lytic or blastic lesions are seen. There is chronic fracture deformity noted in both pubic rings and the left proximal femur. Postoperative changes noted in the left proximal femur. Bolts transfix both sacroiliac joints. IMPRESSION: 1. There is a 2 cm obstructing calculus in mid left ureter. This causes moderate left hydroureteronephrosis. 2. Additional bilateral nonobstructing renal calculi as above. 3. Coronary artery calcifications. 4. Additional findings as above. ACT 112: Negative or not required by law. Electronically signed by: Brad Peguero M.D. 07/11/2022 5:56 PM Code Status & VTE Plan Code Status Full Code. Supervising Physician Co-Signing Physician Notes Patient seen and examined, chart reviewed, case discussed with Radha Goodrich and I agree with the assessment and plan as above except as otherwise noted above. All labs and images reviewed 52yo M who presents with worsened VERONICA and found to have left obstructing hydro on US. Case discussed with PCP prior to admission. Urology consulted for cysto. Keep NPO, LR 125cc/hr. Hold home antiglycemics and switch to weight based basal bolus while inpatient. A1C with poor control, recommend continued intensification as outpt. Hx CAD sp PCI with LINDA, no current cp/cp. HR regular. BP stable. Continue DAPT. COntinue statin. Lovenox switched to heparin for dvt ppx in the setting of renal dysfunction. PG Care Time/CCT Total # of Minutes Spent Total Time Spent with Patient: Total time spent is greater than 50% in coordination of care (as documented) at patient's floor/unit and/or counseling patient: Coding Level of Care Code 38121 INT INP/OBS CARE 3/75MIN Diagnoses Acute kidney injury superimposed on CKD N17.9; N18.9 Hydronephrosis due to obstruction of ureter N13.1 Diabetes mellitus type 2, uncontrolled, with complications E11.8; E11.65 Stage 3b chronic kidney disease N18.32 Anemia D64.9 CAD (coronary artery disease) I25.10 Hypertension I10 Hyperlipidemia E78.5 Hypothyroidism E03.9
[2022-07-11 21:07] LABS: Appearance Urine Clear (Clear); Bacteria Urine Automated Negative (Negative); Bilirubin Urine Negative (Negative); Blood Urine 1+ (Negative); Color Urine Yellow; Epithelial Cell Urine Auto >30 /lpf (0-5); Glucose Urine UA 2+ (Negative); Ketones Urine Trace (Negative); Leukocyte Esterase Urine Negative (Negative); Nitrite Urine Negative (Negative); Protein Urine 2+ (Negative); RBC Urine Automated 0-4 /hpf (0-4); Urobilinogen Urine Negative (Negative); pH Urine 5.5 (4.5-7.5)
[2022-07-11] MEDS ORDERED: ALUMINUM/MAGNESIUM SUSP 30 ML UDC PO PRN (22:09)
[2022-07-11] MEDS ORDERED: CARBOHYDRATES FOR HYPOGLYCEMIA PO PRN (22:09)
[2022-07-11] MEDS ORDERED: ONDANSETRON INJ 2 MG/ML 2 ML VIAL IV PRN (22:09)
[2022-07-11] MEDS ORDERED: DEXTROSE 50% 50 ML SYRINGE IV PRN (22:09)
[2022-07-11] MEDS ORDERED: GLUCAGON FOR INJ 1 MG VIAL SQ PRN (22:09)
[2022-07-11] MEDS ORDERED: POLYETHYLENE (MIRALAX) 17 GM PACK PO PRN (22:09)
[2022-07-11] MEDS ORDERED: GLUCOSE 10 TAB/TUBE PO PRN (22:09)
[2022-07-11] MEDS ORDERED: ACETAMINOPHEN 325 MG TAB PO PRN (22:09)
[2022-07-11] MEDS ORDERED: GLUCOSE 40% GEL 15 GM TUBE PO PRN (22:09)
[2022-07-11] MEDS: LACTATED RINGER'S 1,000 ML IV SCH (23:10)
[2022-07-12] MEDS: LACTATED RINGER'S 1,000 ML IV SCH ×4 (00:46→23:26)
[2022-07-12] MEDS: LANTUS PER UNIT CHARGE SQ SCH ×3 (00:47→21:27)
[2022-07-12] MEDS: INSULIN ASPART PER UNIT SC SCH ×5 (01:10→21:20)
[2022-07-12] MEDS: LEVOTHYROXINE SODIUM 75 MCG TABLET PO SCH (05:35)
--- NOTE | 2022-07-12 07:17 | Anesthesiology Consultation ---
Date of Service July 12, 2022 Assessment & Plan Chart Review Chart Review: entry analyst initiated History Surgery Operation Date: 07/12/22 08:30 Proposed Procedures p Cystoscopy - Joaquin Nelson DO s Ureteral Stent Insertion/Removal - Joaquin Nelson DO Height/Weight Height: 5 ft 8 in Weight: 81.675 kg Allergies Allergy/AdvReac Type Severity Reaction Status Date / Time No Known Allergies Allergy Verified 07/11/22 19:11 Medications Home Medications Medication Instructions Recorded Confirmed Last Taken aspirin 81 mg tablet,delayed 81 mg PO DAILY 10/10/18 07/11/22 07/11/22 release levothyroxine 75 mcg tablet 75 mcg PO DAILY #90 tabs 08/06/21 07/11/22 07/11/22 metoprolol succinate 100 mg 100 mg PO DAILY #90 tabs 08/06/21 07/11/22 07/11/22 tablet,extended release 24 hr clopidogrel 75 mg tablet 75 mg PO DAILY #90 tabs 08/20/21 07/11/22 07/11/22 rosuvastatin 40 mg tablet 40 mg PO DAILY #90 tabs 09/19/21 07/11/22 07/10/22 08:00 glimepiride 2 mg tablet 2 mg PO .COMPLEX #270 tabs 02/07/22 07/11/22 07/11/22 08:00 dapagliflozin 10 mg tablet 10 mg PO QAM #90 tabs 07/03/22 07/11/22 07/10/22 08:00 ([facility]) flash glucose scanning reader #1 ea 07/03/22 07/03/22 Unknown (FreeStyle Jamil 14 Day [place]) flash glucose sensor (FreeStyle #1 ea 07/03/22 07/03/22 Unknown Jamil 14 Day Sensor kit) lisinopril 20 mg tablet 20 mg PO DAILY #90 tabs 07/03/22 07/11/22 07/10/22 08:00 metformin 1,000 mg tablet 1,000 mg PO BID 90 days #180 tabs 07/03/22 07/11/22 07/10/22 08:00 amlodipine 10 mg tablet 10 mg PO QAM 07/11/22 07/11/22 07/11/22 dulaglutide 3 mg/0.5 mL 3 mg subcut WK 07/11/22 07/11/22 Unknown subcutaneous pen injector Active Medications Generic Name Dose Route Start Last Admin Trade Name Jluis PRN Reason Stop Dose Admin Lactated Ringer's 1,000 mls @ 150 mls/hr 07/11/22 22:09 07/12/22 00:46 Lr IV 08/10/22 22:08 150 mls/hr .[id number] RACHELLE Administration Insulin Aspart 0 units 07/11/22 22:09 07/12/22 01:10 Insulin Aspart Per Unit SC 08/10/22 22:08 3 units ACHS RACHELLE Administration Insulin Glargine 14 units 07/11/22 22:09 07/12/22 00:47 Lantus Per Unit Charge SQ 08/10/22 22:08 14 units BID RACHELLE Administration Levothyroxine Sodium 75 mcg 07/12/22 06:30 07/12/22 05:35 Levothyroxine Sodium 75 Mcg Tablet PO 08/11/22 06:29 75 mcg DAILYBB RACHELLE Administration Past Medical History Medical History CAD (coronary artery disease) Chronic kidney disease, stage III (moderate) DM retinopathy Hyperlipidemia Hypertension Hypothyroidism Proteinuria Stage 3b chronic kidney disease Type 2 diabetes mellitus Vitamin D deficiency Past Family History Family History Father Myocardial infarction Heart disease Hypertension Family/Other Diabetes Mother Hypertension Other Breast cancer Prostate cancer Denies family history of Colorectal cancer Past Surgical History Surgical History History of cardiac catheterization S/P coronary artery stent placement Social History Smoking Status: Never smoker Hx Alcohol Use: No Hx Substance Use: No Physical Exam Vital Signs Last Vital Signs Temp 97.9 F 07/12/22 03:39 Pulse 72 07/12/22 03:39 Resp 18 07/12/22 03:39 BP 105/68 07/12/22 03:39 Pulse Ox 98 07/12/22 03:39 O2 Del Method 07/12/22 03:39 Testing Laboratory Results 07/11/22 17:38 07/11/22 17:38 Urine Color Yellow 07/11/22 20:51 Urine Appearance Clear (Clear) 07/11/22 20:51 Urine pH 5.5 (4.5-7.5) 07/11/22 20:51 Ur Specific [place] 1.010 (1.000-1.030) 07/11/22 20:51 Urine Protein 2+ (Negative) H 07/11/22 20:51 Urine Glucose (UA) 2+ (Negative) H 07/11/22 20:51 Urine Ketones Trace (Negative) H 07/11/22 20:51 Urine Nitrite Negative (Negative) 07/11/22 20:51 Ur Leukocyte Esterase Negative (Negative) 07/11/22 20:51 Urine WBC (Auto) 5-10 /hpf (0-5) H 07/11/22 20:51 Urine RBC (Auto) 0-4 /hpf (0-4) 07/11/22 20:51 U Hyaline Cast (Auto) 1-5 /lpf (0-5) 07/11/22 20:51 U Epithel Cells (Auto) >30 /lpf (0-5) H 07/11/22 20:51 Urine Bacteria (Auto) Negative (Negative) 07/11/22 20:51 07/12/22 00:30 POC Glucose 214 H Other Testing Stress echo 12/06/2019: Negative stress echo and ECG at 86% MPHR. No chest pain. 7 minutes 41 seconds Matthew protocol. EF 60-65%. Normal wall motion. No significant valvular abnormalities.
[2022-07-12 07:42] LABS: Basophils # (auto) 0.04 K/uL (0-0.2); Basophils % (auto) 0.7 %; Eosinophils # (auto) 0.08 K/uL (0-0.50); Eosinophils % (auto) 1.5 %; Hematocrit (blood only) 36.6 % (40.1-51.0); Immature Granulocytes # (auto) 0.01 K/uL (0.00-0.02); Immature Granulocytes % (auto) 0.2 %; Lymphocytes # (auto) 1.59 K/uL (1.2-3.4); Lymphocytes % (auto) 28.9 %; Mean Corpuscular Hgb Conc 32.8 g/dL (32.0-36.0); Mean Corpuscular Volume 82.4 fL (80.0-100.0); Mean Platelet Volume 10.5 fL (9.4-12.4); Monocytes # (auto) 0.63 K/uL (0.24-0.82); Monocytes % (auto) 11.5 %; Neutrophils # (auto) 3.15 K/uL (1.4-6.5); Neutrophils % (auto) 57.2 %; Platelet Count 206 K/uL (130-400); RDW Coefficient of Variation 13.2 % (11.5-14.5); RDW Standard Deviation 39.6 fL (36.4-46.3); Red Blood Count 4.44 M/uL (4.63-6.08)
--- NOTE | 2022-07-12 07:53 | Urology Consultation ---
Date of Consultation July 12, 2022 Assessment & Plan (1) Acute kidney injury superimposed on CKD: (2) Hydronephrosis due to obstruction of ureter: (3) Diabetes mellitus type 2, uncontrolled, with complications: (4) Stage 3b chronic kidney disease: (5) CAD (coronary artery disease): Plan Patient presents with 2-3 months of ongoing back and flank pain and discomfort. Severely worsened over last few weeks. Became severe and presented to ER. Had considerable exacerbation of chronic kidney issues. Severe VERONICA with CR over 3. Mild hypotension but afebrile. All labs and vitals reviewed. Patients imaging was reviewed and interpreted by myself. Large obstructing stone in the left prox/mid ureter with severe hydronephrosis. Multiple comorbidities a majority of which likely stemming from issues with diabetic control. CAD. Significant CKD. Discussed options for conservative measure and maximum expulsion medical therapy and symptom controlled. Discussed ESWL. Discussed Ureteroscopy with extraction and/or laser lithotripsy. Risks and benefits were discussed. Stone free rates were also discussed as well as possibility of multiple procedures. Ureteral stents were discussed as well as post-operative issues and pain management. All questions were answered. Patient is NPO and COVID negative. Risks and benefits discussed at length for procedure. These include bleeding, infection, injury to surrounding tissues or organs, and risks associated with anesthesia. Patient states understanding and agrees to proceed. Will sign consent and schedule. Plan for Cystoscopy with left stent placement. History of Present Illness Attending Physician: Sonia Pérez, DO History of Present Illness New consultation for patient with stone, discomfort, obstruction, and ill feelings. Patient developed sudden onset of pain into flank going down and radiating into groin and back in waves comes and goes. Issues had been going on for nearly 2 months but recently became more considerable. Left side discomfort. Can be severe at times. Discussed and reviewed patient's family history for any history of stone disease. No family history of major sepsis with stones. Also, discussed patient's medical surgery history especially related to any history of urinary issues or stone disease. Patient was admitted and is undergoing observation. Allergies Allergy/AdvReac Type Severity Reaction Status Date / Time No Known Allergies Allergy Verified 07/11/22 19:11 Home Medications Medication Instructions Recorded Confirmed Type aspirin 81 mg tablet,delayed 81 mg PO DAILY 10/10/18 07/11/22 History release levothyroxine 75 mcg tablet 75 mcg PO DAILY #90 tabs 08/06/21 07/11/22 Rx metoprolol succinate 100 mg 100 mg PO DAILY #90 tabs 08/06/21 07/11/22 Rx tablet,extended release 24 hr clopidogrel 75 mg tablet 75 mg PO DAILY #90 tabs 08/20/21 07/11/22 Rx rosuvastatin 40 mg tablet 40 mg PO DAILY #90 tabs 09/19/21 07/11/22 Rx glimepiride 2 mg tablet 2 mg PO .COMPLEX #270 tabs 02/07/22 07/11/22 Rx dapagliflozin 10 mg tablet 10 mg PO QAM #90 tabs 07/03/22 07/11/22 Rx (Farxiga) flash glucose scanning reader #1 ea 07/03/22 07/03/22 Rx (FreeStyle Jamil 14 Day [place]) flash glucose sensor (FreeStyle #1 ea 07/03/22 07/03/22 Rx Jamil 14 Day Sensor kit) lisinopril 20 mg tablet 20 mg PO DAILY #90 tabs 07/03/22 07/11/22 Rx metformin 1,000 mg tablet 1,000 mg PO BID 90 days #180 tabs 07/03/22 07/11/22 Rx amlodipine 10 mg tablet 10 mg PO QAM 07/11/22 07/11/22 History dulaglutide 3 mg/0.5 mL 3 mg subcut WK 07/11/22 07/11/22 History subcutaneous pen injector Patient History Medical History CAD (coronary artery disease) Chronic kidney disease, stage III (moderate) DM retinopathy Hyperlipidemia Hypertension Hypothyroidism Proteinuria Stage 3b chronic kidney disease Type 2 diabetes mellitus Vitamin D deficiency Surgical History History of cardiac catheterization S/P coronary artery stent placement Family History Father Myocardial infarction Heart disease Hypertension Family/Other Diabetes Mother Hypertension Other Breast cancer Prostate cancer Denies family history of Colorectal cancer Social History Smoking Status: Never smoker Second Hand Exposure: No; Hx Alcohol Use: No Hx Substance Use: No Preferred Language: Jordanian Communication Ability: Effective Hearing Ability: Normal [employer] Sales[employer] Required: No Beliefs That Will Affect Care: None marital status: Current Living Situation: Spouse current occupational status: employed Other Information That Helps Us Care for You: No Feels Safe at Home: Yes Safety Concerns: Feels Safe At This Time caffeine: No Dental Care, Regularly: No Seatbelt Use: always Sunscreen Use: Yes Assistive Devices: Glasses Review of Systems Review of Systems: All systems reviewed & are unremarkable except as noted in HPI & below Physical Exam Physical Exam: General: Alert and oriented x 3 in no acute distress. Patient is well nourished and well kept. HEENT: Normocephalic Atraumatic. Inspection normal. Cranial Nerves 2-12 Grossly intact. Nares are clear. Neck is supple. Normal inspection of face. Normal inspection of neck. Neurologic: No deficits on inspection. Baseline for motor function and sensory. Psychologic: Normal affect. Respiratory: Nonlabored. No use of accessory muscles. No tachypnea or dyspnea. Cardiovascular: No tachycardia Skin: [place] and Dry. No rashes or visible lesions. Extremities: Moving without issues. No motor deficits on inspection Lymphatics: No edema Abdomen: Soft Non-distended. No acites. No rebound or guarding. Results & Data ([facility]) Vital Signs (Past 12 Hours) Vital Signs Temp Pulse Pulse Resp BP BP Pulse Ox 07/12/22 03:39 36.6 C 72 18 105/68 98 07/11/22 23:50 36.8 C 77 18 146/82 H 97 07/11/22 23:07 89 18 116/63 95 07/11/22 21:42 88 18 160/85 H 99 O2 Del Method 07/12/22 03:39 Room Air 07/11/22 23:50 Room Air 07/11/22 23:07 Room Air 07/11/22 21:42 Room Air PG Care Time/CCT Total # of Minutes Spent Total Time Spent with Patient: Total time spent is greater than 50% in coordination of care (as documented) at patient's floor/unit and/or counseling patient: Coding Level of Care Code INP/OBS CONSULT LVL 5, 80 MIN Diagnoses Acute kidney injury superimposed on CKD N17.9; N18.9 Hydronephrosis due to obstruction of ureter N13.1 Diabetes mellitus type 2, uncontrolled, with complications E11.8; E11.65 Stage 3b chronic kidney disease N18.32 CAD (coronary artery disease) I25.10
[2022-07-12 08:02] LABS: Potassium 4.3 mmol/L (3.5-5.1)
[2022-07-12 08:30] LABS: BUN Creatinine Ratio 11.5 (10-20); Calcium 9.1 mg/dl (8.5-10.1); Creatinine Clr Calc Pharmacy 27.1 ml/min; Est GFR (African American) 25.4 ml/min; Est GFR (Non-African American) 21.9 ml/min
--- NOTE | 2022-07-12 08:58 | Hospitalist Progress Note ---
Date of Service July 12, 2022 Assessment & Plan (1) Acute kidney injury superimposed on CKD: Plan: - Baseline creatinine ~1.8-2.1 in the last several months. Presented with creatinine 3.24 -> 3.12 today. - Presented with overall malaise, back complaints, CTAP with obstructing stone and severe hydronephrosis on the LEFT. - UA without evidence of infection. Culture collected during cystoscopy as well. - Urology consulted and appreciate recommendations, s/p cystoscopy and left ureter stent placement 07/12. - LR at 150cc/hr for now. - Holding Lisinopril, Farxiga. - Daily BMP. (2) Hydronephrosis due to obstruction of ureter: Plan: - Urology consulted, management of VERONICA as above. (3) Diabetes mellitus type 2, uncontrolled, with complications: Plan: - Holding oral agents (glimepiride, Trulicity metformin). - Weight based basal/bolus while admitted. - A1c 9.8% on 07/03. - DM2 diet. (4) Stage 3b chronic kidney disease: Plan: - Baseline 1.8 to 2.1, management of VERONICA as above. (5) Anemia: Plan: - Anemia of chronic disease with CKD as above. - Daily CBC especially in the setting of post-op period. (6) CAD (coronary artery disease): Plan: - s/p PCI with LINDA 09/17 and 10/18 to LAD and LCx/OM, carotid artery stenosis. - Continue aspirin and Plavix daily. - Continue diabetes, cholesterol, blood pressure management. (7) Hypertension: Plan: - Lisinopril on hold for VERONICA. - Continue metoprolol. (8) Hyperlipidemia: Plan: - Continue rosuvastatin. (9) Hypothyroidism: Plan: - Continue levothyroxine. Plan - Med/Tele - DM2 diet, IVF - ambulate on demand, low risk of DVT - FULL CODE Admission and Anticipated Discharge Date Admission Date: July 11, 2022 Subjective Had cystoscopy and left ureteral stent insertion today by Dr. Nelson. Patient seen after procedure, feeling overall well sitting up in bed eating lunch with and child. Had some mild pain which resolved with Tylenol. No other complaints at this time. No trouble breathing or chest pain. Review of Systems Review of Systems: All systems reviewed & are unremarkable except as noted in Subjective Physical Exam Constitutional: WD/WN, vitals as above Respiratory: normal respiratory effort, lungs clear to auscultation Cardiovascular: RRR, no murmur, no edema Gastrointestinal (Abdomen): normal bowel sounds, soft, nontender, no hepatosplenomegaly Skin: no rashes, warm and dry Psychiatric: A+Ox3, euthymic affect Results & Data Results & Data ([facility]) Vital Signs (Past 12 Hours) Vital Signs Temp Pulse Pulse Resp BP BP BP 07/12/22 06:00 64 07/12/22 07:49 36.8 C 78 20 143/81 H 07/12/22 03:39 36.6 C 72 18 105/68 07/11/22 23:50 36.8 C 77 18 146/82 H 07/11/22 23:07 89 18 116/63 07/11/22 21:42 88 18 160/85 H Pulse Ox O2 Del Method 07/12/22 06:00 07/12/22 07:49 97 Room Air 07/12/22 03:39 98 Room Air 07/11/22 23:50 97 Room Air 07/11/22 23:07 95 Room Air 07/11/22 21:42 99 Room Air PG Care Time/CCT Total # of Minutes Spent Total Time Spent with Patient: Total time spent is greater than 50% in coordination of care (as documented) at patient's floor/unit and/or counseling patient: Coding Level of Care Code 54186 SUB INP/OBS CARE 3/50MIN Diagnoses Acute kidney injury superimposed on CKD N17.9; N18.9 Hydronephrosis due to obstruction of ureter N13.1 Diabetes mellitus type 2, uncontrolled, with complications E11.8; E11.65 Stage 3b chronic kidney disease N18.32 Anemia D64.9 CAD (coronary artery disease) I25.10 Hypertension I10 Hyperlipidemia E78.5 Hypothyroidism E03.9
[2022-07-12] MEDS ORDERED: MIDAZOLAM HCL 1 MG/ML 2ML VIAL ONE (09:06)
[2022-07-12] MEDS ORDERED: PROPOFOL IV EMULSION 10 MG/ML 20 ML VIAL IV ONE ×2 (09:06→09:55)
[2022-07-12] MEDS ORDERED: ATROPINE SULFATE 0.1 MG/ML 10ML SYR IV PRN (09:07)
[2022-07-12] MEDS ORDERED: fentaNYL citrate 100 MCG/2 ML VIAL IV PRN (09:07)
[2022-07-12] MEDS ORDERED: ONDANSETRON INJ 2 MG/ML 2 ML VIAL IV PRN (09:07)
[2022-07-12] MEDS ORDERED: fentaNYL citrate 100 MCG/2 ML VIAL ONE (09:07)
[2022-07-12] MEDS ORDERED: ePHEDrine sulfate 50 MG/ML AMP IV PRN (09:07)
[2022-07-12] MEDS ORDERED: LIDOCAINE 2% MPF LOCAL 5 ML VIAL INFIL ONE (09:55)
--- NOTE | 2022-07-12 10:01 | Operative Report ---
PG Post Operative Report Pre & Post Diagnosis Operation Date: 07/12/22 08:30 Pre-Op Diagnosis: Acute Kidney Injury Superimposed on Chronic Kidney Disease Hydronephrosis due to Obstruction of Ureter Post-Op Diagnosis: Acute Kidney Injury Superimposed on Chronic Kidney Disease Hydronephrosis due to Obstruction of Ureter I identified the patient and participated in the time-out.: Yes Procedure Operation Date: 07/12/22 08:30 Actual Procedures p Cystoscopy with Left Retrograde Pyelogram, Urine Aspiration, and Left Ureteral Stent Insertion - Joaquin Nelson DO Surgeon Joaquin Nelson, II, DO Data Center Manager None Estimated Blood Loss 1 Findings Consistent with Post-Op Diagnosis Stent placed in good position. Considerable obstruction of left mid ureter. Specimens None Drains 6 Fr Multilength Anesthesia Type MAC Complications none Disposition Disposition: Recovery Room Indications Patient with obstruction from Left large ureteral stone. Risks and benefits discussed at length. Description of Procedure Patient was consented and brought back to the operating room. Patient was placed under anesthesia in the supine position and moved to the dorsal lithotomy position. Patient was prepped and draped in the regular sterile fashion. A time out was completed. A 30degree Cystoscope was placed into the bladder and the entire bladder was examined. The UO's were identified. The UO on left was cannulized with a catheter and a wire was placed. Considerable manipulation was necessary to advance the wire past the large obstructing stone. Once passed the stone, the catheter was advanced over the wire, urine was aspirated from the renal pelvis, and a retrograde pyelogram was completed. A wire was then replaced. With the wire in place, a 6 Fr Double J stent was placed. It was confirmed with fluoroscopy. With the stent in place, the bladder was emptied. The scope was removed. The patient was cleaned, aroused from anesthesia, and transferred to the pacu in stable condition having tolerated the procedure well with no complications. I was present and participated in all aspects of the procedure. The patient will be monitored in the PACU until transferred. Plan to transfer to floor and monitor. Will likely need stone treatment after VERONICA resolves likely in 2-3 weeks. I attest to the content of the Intraoperative Record and any orders documented therein. Any exceptions are noted below.
[2022-07-12] MEDS ORDERED: ceFAZolin 2000MG 2,000 MG/15 ML SYR IV ONE (10:02)
--- NOTE | 2022-07-12 10:09 | Fluoroscopy Report ---
FL retrograde includes kub HISTORY: 52 years-old Male LEFT STENT status post placement of a left ureteral stent COMPARISON: CT abdomen pelvis 07/11/2022 TECHNIQUE: 2 spot fluoroscopic images of the abdomen were obtained utilizing 125.1 seconds fluoroscop y time FINDINGS: Status post placement of a left ureteral stent. There is persistent left-sided hydronephrosis with bl unting of the calyces. Previously noted left ureteral calculus is not definitively seen. IMPRESSION: Fluoroscopic assistance as above. ACT 112: Negative or not required by law. The above report was generated using voice recognition software. It may contain grammatical, syntax o r spelling errors. Electronically signed by: Austin Woodward M.D. 07/12/2022 10:07 AM
--- NOTE | 2022-07-12 10:15 | Anesthesiology Progress Note ---
Date of Service July 12, 2022 Anesthesia Post Procedure Vital Signs Vital Signs: Temp Pulse Pulse Resp BP BP BP 07/12/22 06:00 64 07/12/22 07:49 98.2 F 78 20 143/81 H 07/12/22 03:39 97.9 F 72 18 105/68 07/11/22 23:50 98.2 F 77 18 146/82 H 07/11/22 23:07 89 18 116/63 07/11/22 21:42 88 18 160/85 H 07/11/22 19:10 82 16 158/86 H 07/11/22 16:30 97.2 F L 95 H 18 128/81 Pulse Ox O2 Del Method 07/12/22 06:00 07/12/22 07:49 97 Room Air 07/12/22 03:39 98 Room Air 07/11/22 23:50 97 Room Air 07/11/22 23:07 95 Room Air 07/11/22 21:42 99 Room Air 07/11/22 19:10 100 Room Air 07/11/22 16:30 99 Room Air Transfer of Care Handoff Completed per policy Notes Mental Status: alert / awake / arousable and participated in evaluation Patient Amnestic to Procedure: Yes Nausea / Vomiting: adequately controlled Pain: adequately controlled Airway Patency, RR, SpO2: stable & adequate BP & HR: stable & adequate Hydration State: stable & adequate Anesthetic Complications: no major complications apparent and Pt Satisfied with anesthetic care
[2022-07-12] MEDS ORDERED: ceFAZolin 330 MG/ML 1 GM VIAL ONE (10:24)
[2022-07-12] MEDS: ROSUVASTATIN CALCIUM 20 MG TAB PO SCH (11:01)
[2022-07-12] MEDS: METOPROLOL SUCC 50MG EXT REL TAB PO SCH (11:01)
[2022-07-12] MEDS: amLODIPine BESYLATE 5 MG TAB PO SCH (11:01)
[2022-07-13] MEDS: LEVOTHYROXINE SODIUM 75 MCG TABLET PO SCH (05:18)
[2022-07-13] MEDS: LACTATED RINGER'S 1,000 ML IV SCH ×3 (06:09→19:36)
--- NOTE | 2022-07-13 08:12 | Hospitalist Progress Note ---
Date of Service July 13, 2022 Assessment & Plan (1) Acute kidney injury superimposed on CKD: Plan: - Presented with overall malaise, back complaints, CTAP with obstructing stone and severe hydronephrosis on the LEFT. - Baseline creatinine ~1.8-2.1 in the last several months. Presented with creatinine 3.24 -> 2.46 today following stent placement. - UA without evidence of infection. Culture collected during cystoscopy as well, negative so far (collected 07/13 at 9AM) - Urology consulted and appreciate recommendations, s/p cystoscopy and left ureter stent placement 07/12. - Continue LR at 150cc/hr through today with repeat BMP tomorrow AM. - Holding Lisinopril, Farxiga. - Consider discharge tomorrow if patient's renal function continues to improve. (2) Hydronephrosis due to obstruction of ureter: Plan: - Urology consulted, management of nephrolithiasis as above. (3) Diabetes mellitus type 2, uncontrolled, with complications: Plan: - Holding oral agents (glimepiride, Trulicity metformin). - Weight based basal/bolus while admitted. - A1c 9.8% on 07/03. - DM2 diet. (4) Stage 3b chronic kidney disease: Plan: - Baseline 1.8 to 2.1, management of VERONICA as above. (5) Anemia: Plan: - Anemia of chronic disease with CKD as above. - Daily CBC especially in the setting of post-op period. - Hgb stable today 12.4. (6) CAD (coronary artery disease): Plan: - s/p PCI with LINDA 09/17 and 10/18 to LAD and LCx/OM, carotid artery stenosis. - Continue aspirin and Plavix daily. - Continue diabetes, cholesterol, blood pressure management. (7) Hypertension: Plan: - Lisinopril on hold for VERONICA. - Continue metoprolol. (8) Hyperlipidemia: Plan: - Continue rosuvastatin. (9) Hypothyroidism: Plan: - Continue levothyroxine. Plan - Med/Tele - DM2 diet, IVF - Ambulate on demand, low risk of DVT - FULL CODE Admission and Anticipated Discharge Date Admission Date: July 11, 2022 Subjective No overnight events. Denies any pain in his back or abdomen, no nausea, chest pain, SOB. Review of Systems Review of Systems: All systems reviewed & are unremarkable except as noted in Subjective Physical Exam Constitutional: WD/WN, vitals as above Respiratory: normal respiratory effort, lungs clear to auscultation Cardiovascular: RRR, no murmur, no edema Gastrointestinal (Abdomen): normal bowel sounds, soft, nontender, no hepatosplenomegaly Skin: no rashes, warm and dry Psychiatric: A+Ox3, euthymic affect Results & Data Results & Data ([facility]) Vital Signs (Past 12 Hours) Vital Signs Temp Pulse Pulse Resp BP BP Pulse Ox 07/13/22 07:38 36.6 C 68 20 135/83 97 07/13/22 05:56 64 07/13/22 03:37 36.6 C 66 18 134/77 95 07/13/22 00:00 72 07/12/22 22:31 36.7 C 70 18 163/92 H 95 O2 Del Method 07/13/22 07:38 Room Air 07/13/22 05:56 07/13/22 03:37 Room Air 07/13/22 00:00 07/12/22 22:31 Room Air PG Care Time/CCT Total # of Minutes Spent Total Time Spent with Patient: Total time spent is greater than 50% in coordination of care (as documented) at patient's floor/unit and/or counseling patient: Coding Level of Care Code 01868 SUB INP/OBS CARE 2/35MIN Diagnoses Acute kidney injury superimposed on CKD N17.9; N18.9 Hydronephrosis due to obstruction of ureter N13.1 Diabetes mellitus type 2, uncontrolled, with complications E11.8; E11.65 Stage 3b chronic kidney disease N18.32 Anemia D64.9 CAD (coronary artery disease) I25.10 Hypertension I10 Hyperlipidemia E78.5 Hypothyroidism E03.9
[2022-07-13 08:31] LABS: Basophils # (auto) 0.03 K/uL (0-0.2); Basophils % (auto) 0.5 %; Eosinophils # (auto) 0.11 K/uL (0-0.50); Eosinophils % (auto) 1.9 %; Hematocrit (blood only) 36.7 % (40.1-51.0); Hemoglobin 12.4 g/dl (14.0-18.0); Immature Granulocytes # (auto) 0.01 K/uL (0.00-0.02); Immature Granulocytes % (auto) 0.2 %; Mean Corpuscular Hemoglobin 27.4 pg (25.0-34.0); Mean Corpuscular Hgb Conc 33.8 g/dL (32.0-36.0); Mean Corpuscular Volume 81.2 fL (80.0-100.0); Monocytes # (auto) 0.46 K/uL (0.24-0.82); Monocytes % (auto) 7.8 %; Neutrophils # (auto) 3.27 K/uL (1.4-6.5); Neutrophils % (auto) 55.6 %; Platelet Count 213 K/uL (130-400); RDW Coefficient of Variation 13.2 % (11.5-14.5); RDW Standard Deviation 39.1 fL (36.4-46.3); Red Blood Count 4.52 M/uL (4.63-6.08); White Blood Count 5.88 K/ul (4.8-10.8)
[2022-07-13] MEDS: INSULIN ASPART PER UNIT SC SCH ×4 (08:40→21:56)
[2022-07-13] MEDS: amLODIPine BESYLATE 5 MG TAB PO SCH (08:45)
[2022-07-13] MEDS: ROSUVASTATIN CALCIUM 20 MG TAB PO SCH (08:45)
[2022-07-13] MEDS: METOPROLOL SUCC 50MG EXT REL TAB PO SCH (08:45)
[2022-07-13] MEDS: LANTUS PER UNIT CHARGE SQ SCH ×2 (08:45→21:57)
[2022-07-13 08:49] LABS: BUN Creatinine Ratio 10.2 (10-20); Calcium 9.1 mg/dl (8.5-10.1); Creatinine Clr Calc Pharmacy 34.4 ml/min; Est GFR (African American) 33.9 ml/min; Est GFR (Non-African American) 29.2 ml/min; Potassium 4.5 mmol/L (3.5-5.1)
--- NOTE | 2022-07-13 17:59 | Urology Progress Note ---
Date of Service July 13, 2022 Assessment & Plan (1) Acute kidney injury superimposed on CKD: (2) Hydronephrosis due to obstruction of ureter: (3) Diabetes mellitus type 2, uncontrolled, with complications: (4) Stage 3b chronic kidney disease: (5) CAD (coronary artery disease): Plan Patient POD 1 s/p Stent on left for large obstructing ureteral stone Plan to maintain stent and allow decompression. Will likely need treatment. Lebron improved but not resolved. Baseline CKD. No major fevers or chills. Will set followup in 1-2 weeks with plan to treat stone in next 2-4 weeks. Admission and Anticipated Discharge Date Admission Date: July 11, 2022 Subjective Postop from stent placement for obstruction issues. Patient has been tolerating well. Patient has been doing well. Has been ambulating halls and visiting with family Has noticed some frequency and urgency. Has not had severe pain in the back and flank. Does have occasional burning and irritation. No severe episodes or major changes. No new nausea or vomiting. Had tolerated anesthesia without major problems Review of Systems Review of Systems: All systems reviewed & are unremarkable except as noted in HPI & below Physical Exam Physical Exam: General: Alert in no acute distress. HEENT: Normocephalic Atraumatic. Inspection normal. Cranial Nerves 2-12 Grossly intact. Normal inspection of face. Normal inspection of neck. Psychologic: Normal affect. Respiratory: Nonlabored. No use of accessory muscles. No tachypnea or dyspnea. Cardiovascular: No tachycardia Skin: Atkins and Dry. No rashes or visible lesions. Extremities/Lymphatics: No edema Abdomen: Soft Non-distended. No rebound or guarding. Results & Data ([facility]) Vital Signs (Past 12 Hours) Vital Signs Temp Pulse Pulse Resp BP Pulse Ox O2 Del Method 07/13/22 14:09 85 07/13/22 15:09 36.8 C 98 H 20 131/72 96 Room Air 07/13/22 11:21 37 C 75 20 150/83 H 97 Room Air 07/13/22 07:38 36.6 C 68 20 135/83 97 Room Air PG Care Time/CCT Total # of Minutes Spent Total Time Spent with Patient: Total time spent is greater than 50% in coordination of care (as documented) at patient's floor/unit and/or counseling patient: Coding Level of Care Code 52208 SUB INP/OBS CARE 2MIN Diagnoses Acute kidney injury superimposed on CKD N17.9; N18.9 Hydronephrosis due to obstruction of ureter N13.1 Diabetes mellitus type 2, uncontrolled, with complications E11.8; E11.65 Stage 3b chronic kidney disease N18.32 CAD (coronary artery disease) I25.10
[2022-07-14] MEDS: LACTATED RINGER'S 1,000 ML IV SCH ×2 (03:31→07:54)
[2022-07-14] MEDS: LEVOTHYROXINE SODIUM 75 MCG TABLET PO SCH (06:12)
[2022-07-14] MEDS: amLODIPine BESYLATE 5 MG TAB PO SCH (07:55)
[2022-07-14] MEDS: ROSUVASTATIN CALCIUM 20 MG TAB PO SCH (07:55)
[2022-07-14] MEDS: METOPROLOL SUCC 50MG EXT REL TAB PO SCH (07:56)
[2022-07-14] MEDS: INSULIN ASPART PER UNIT SC SCH ×2 (07:59→12:32)
[2022-07-14] MEDS: LANTUS PER UNIT CHARGE SQ SCH (08:10)
[2022-07-14 08:47] LABS: Hematocrit (blood only) 35.7 % (40.1-51.0); Hemoglobin 11.9 g/dl (14.0-18.0); Mean Corpuscular Hemoglobin 27.5 pg (25.0-34.0); Mean Corpuscular Hgb Conc 33.3 g/dL (32.0-36.0); Mean Corpuscular Volume 82.6 fL (80.0-100.0); Mean Platelet Volume 10.1 fL (9.4-12.4); Platelet Count 201 K/uL (130-400); RDW Standard Deviation 39.4 fL (36.4-46.3); Red Blood Count 4.32 M/uL (4.63-6.08); White Blood Count 5.72 K/ul (4.8-10.8)
[2022-07-14 09:07] LABS: Calcium 8.6 mg/dl (8.5-10.1); Creatinine Clr Calc Pharmacy 38.2 ml/min; Est GFR (African American) 35.1 ml/min; Est GFR (Non-African American) 30.3 ml/min; Potassium 3.9 mmol/L (3.5-5.1)
--- NOTE | 2022-07-14 10:59 | Discharge Summary ---
Date of Service July 14, 2022 Admission HPI Per Admitting Provider Efren Mello is a 52-year-old male with past medical history significant for uncontrolled diabetes, hypertension, hyperlipidemia, hypothyroidism, CKD 3, CAD who is presenting today with worsening renal function. Follows with nephrology and his PCP closely as an outpatient, and recently had his lisinopril increased from 10 mg to 20 mg and Farxiga increased from 5 mg to 10 mg. His metformin was also increased to the maximum daily dose. His baseline creatinine is 1.8, however after the medication changes he got up to 2.4, now 3.2 Baseline GFR of around 40, now 20. He has a history of nonobstructing renal follow-ups, therefore a renal U/S was ordered which shows moderate left hydronephrosis due to several proximal mid left ureteral calculi that measure up to 1.6 cm, bilateral nephrolithiasis. On presentation, patients VS are within normal limits, he is hemodynamically stable. Labs significant for creatinine 3.49, GFR 19.1. He is without any electrolyte abnormalities, has a chronic anemia which is at baseline. Renal ultrasound obtained today, as above. We will consult for obstructing renal stones. Principal Diagnosis Obstructing left ureter stone with left hydronephrosis, acute on chronic kidney disease stage III Discharge Exam General-alert and oriented x3, no fevers, no chills HEENT-head atraumatic and normocephalic, pupils equal and reactive to light, extraocular muscles intact Neck-no lymphadenopathy or thyromegaly, trachea midline Chest-clear to auscultation percussion. No rales wheezing or rhonchi Cardiac-regular rate and rhythm, normal S1 and S2 Abdomen-normal bowel sounds, nontender, no hepatosplenomegaly Extremities-no cyanosis, clubbing, or edema Neuro-cranial nerves II through XII intact, motor and sensory function within normal limits, strength symmetrical , no focal deficits Psych-normal affect, normal mood Discharge Data Allergies Allergy/AdvReac Type Severity Reaction Status Date / Time No Known Allergies Allergy Verified 07/11/22 19:11 Consultations 07/11/22 19:06 ED Decision to Admit Stat 07/11/22 22:09 Consult Urology Routine Procedures Performed Operation Date: 07/12/22 08:30 Actual Procedures p Cystoscopy, Retrograde Pyelogram, Left Ureteral Stent Insertion(Left) - Joaquin Nelson DO Ordered Studies 07/11/22 16:32 CT abd pelvis wo con Stat 07/12/22 07:45 FL retrograde includes kub Routine Hospital Course (1) Acute kidney injury superimposed on CKD: - Presented with overall malaise, back complaints, CTAP with obstructing stone and severe hydronephrosis on the LEFT. - Baseline creatinine ~1.8-2.1 in the last several months. Presented with creatinine 3.24 -> 2.46 today following stent placement. - UA without evidence of infection. Culture collected during cystoscopy as well, negative so far (collected 07/13 at 9AM) - Urology consulted and appreciate recommendations, s/p cystoscopy and left ureter stent placement 07/12. -Treated with IV fluids - Holding Lisinopril, Farxiga. -We will discharge home today. Creatinine is trending down. Today creatinine is down to 2.3. Expect this to reach his baseline as an outpatient. (2) Hydronephrosis due to obstruction of ureter: - Urology consult appreciated. He is status postplacement of a left ureter stent. This should resolve. (3) Diabetes mellitus type 2, uncontrolled, with complications: - Holding oral agents (glimepiride, Trulicity metformin). - Weight based basal/bolus while admitted. - A1c 9.8% on 07/03. - DM2 diet. (4) Stage 3b chronic kidney disease: - Baseline 1.8 to 2.1, management of VERONICA as above. (5) Anemia: - Anemia of chronic disease with CKD as above. - Daily CBC especially in the setting of post-op period. - Hgb stable (6) CAD (coronary artery disease): - s/p PCI with LINDA 09/17 and 10/18 to LAD and LCx/OM, carotid artery stenosis. - Continue aspirin and Plavix daily. - Continue diabetes, cholesterol, blood pressure management. (7) Hypertension: - Lisinopril on hold for VERONICA. Resume at discharge - Continue metoprolol. (8) Hyperlipidemia: - Continue rosuvastatin. (9) Hypothyroidism: - Continue levothyroxine. Plan - Med/Tele - DM2 diet, IVF - Ambulate on demand, low risk of DVT - FULL CODE Disposition: Discharge home today. He will remain off work until further notice. Follow-up as outpatient with urology in 1 to 2 weeks Total Time Total Time Spent Total Time Spent (In Minutes): 35 minutes Discharge Plan Discharge Items Patient Disposition: Home - Self-Care Reason For Visit: VERONICA ON CKD Discharge Diagnosis: Obstructing left ureter stone, left hydronephrosis, acute on chronic kidney disease stage III Non-emergency contact: Primary Care Provider Call non-emergency contact if: you have any medication questions Follow-up/Referrals: Dagoberto Bazan, [Primary Care Provider] - Diet: Carb Consistent or DM2 and Heart Healthy Addtl Attending Provider Instructions: Off work until further notice. Follow-up with urology in 1 to 2 weeks Pending Studies at Discharge: No Stand-Alone Forms: My [employer], Work/School Release, Smoking Cessation Medications and DC Order Prescriptions: Continued metoprolol succinate 100 mg tablet extended release 24 hr 100 mg PO DAILY Qty: 90 3RF levothyroxine 75 mcg tablet 75 mcg PO DAILY Qty: 90 3RF clopidogrel 75 mg tablet 75 mg PO DAILY Qty: 90 3RF glimepiride 2 mg tablet 2 mg PO .COMPLEX Qty: 270 3RF Rx Instructions: 2 mg PO; TAKES 2 MG QAM, THEN 4 MG QPM. rosuvastatin 40 mg tablet 40 mg PO DAILY Qty: 90 3RF Hold Instructions: poor GFR Rx Instructions: ON HOLD PER MD metformin 1,000 mg tablet 1,000 mg PO BID 90 Days Qty: 180 3RF Rx Instructions: ON HOLD PER MD (TAVARES) Gone!Style Jamil 14 Day Cisco Misc See Rx Instructions .Route Qty: 1 0RF Rx Instructions: As directed (DME) FreeStyle Jamil 14 Day Sensor Kit See Rx Instructions .Route Qty: 1 0RF Rx Instructions: As directed Farxiga 10 mg tablet 10 mg PO QAM Qty: 90 3RF Hold Instructions: worse GFR Rx Instructions: ON HOLD PER MD lisinopril 20 mg tablet 20 mg PO DAILY Qty: 90 3RF Hold Instructions: worse GFR Rx Instructions: ON HOLD PER MD aspirin 81 mg Tablet,Delayed Release (Dr/Ec) 81 mg PO DAILY amlodipine 10 mg tablet 10 mg PO QAM Rx Instructions: Take 1 tablet by mouth once daily dulaglutide 3 mg/0.5 mL pen injector 3 mg subcut WK Rx Instructions: 3mg SQ once every 7 days Discharge Orders: Discharge Order (Routine); Ordered 07/14/22 Ordered By: Foreign Roche/Other Patient Handouts: High Blood Sugar (Hyperglycemia), Managing Type 2 Diabetes Admission Data Admit Date/Time: 07/11/22 18:56 Attending Provider: Foreign Contreras Admit Provider: Yordy Dyer Primary Care Provider: Dagoberto Bazan Other Providers: Yordy Dyer ; Joaquin Nelson Coding Level of Care Code HOSP INP/OBS DISCH >30 MIN Diagnoses Acute kidney injury superimposed on CKD N17.9; N18.9 Hydronephrosis due to obstruction of ureter N13.1 Diabetes mellitus type 2, uncontrolled, with complications E11.8; E11.65 Stage 3b chronic kidney disease N18.32 Anemia D64.9 CAD (coronary artery disease) I25.10 Hypertension I10 Hyperlipidemia E78.5 Hypothyroidism E03.9
== END 2022-07-14 14:03 | disposition home or self-care (01) | DRG 661 ==
LOC: ED 16:29 → SUATTDRO 18:56 → EDINP 18:56 → 2N 23:07